=== PATIENT | male | born 1995 ===

== ENCOUNTER 2024-10-13 17:48 | Outpatient (REF) | payer OTHER, SELFPAY ==
[2024-10-15 10:07] LABS: Measles IgG Antibody Positive (See Note); Rubella IgG Ab (UVM) Positive (See Note)
== END 2024-10-13 17:49 | disposition home or self-care (01) ==
LOC: LBN 17:48
PROVIDERS: Visit Provider Physician Assistant Medical
DX: Z78.9 Other specified health status (principal)
CPT/HCPCS: 86762; 86765

== ENCOUNTER 2024-10-26 17:18 | Outpatient (REF) | payer OTHER, SELFPAY ==
[2024-10-28 09:03] LABS: Mumps Antibody IgG Negative (See Note)
== END 2024-10-26 17:19 | disposition home or self-care (01) ==
LOC: LBN 17:18
PROVIDERS: Visit Provider Nurse Practitioner Family
DX: Z78.9 Other specified health status (principal)
CPT/HCPCS: 86735